=== PATIENT | male | born 1970 | race African-American/Black ===

== ENCOUNTER 2017-02-28 12:25 | Emergency (ER) | payer MEDICAID, OTHER ==
[~2017-02-28] VITALS: Ht 177.8 cm; Wt 70.0 kg
[~2017-02-28 12:25] MED LIST: DIPH50TA PO; DIPH50TA4 PO; DOXY100; LORA-474 PO; LORA-475 PO; LORA1TAB PO; LORA2TAB PO; QUET1TAB66 PO; REST30CA PO; RISP1TAB51 OR; RISP2TAB2 PO; SERO300T OR; TEMA30CA PO
[2017-02-28 12:42] VITALS: BP 116/84; PULSE 88; RESP 18; TEMP 97.7; O2SAT 98
[2017-02-28 12:47] VITALS: BP 116/84; PULSE 88; RESP 18; TEMP 97.7; O2SAT 98
--- NOTE | 2017-02-28 13:10 | PD ---
HPI Chief Complaint: Psychiatric Symptoms Time Seen by Provider: 12:55 Travel History International Travel<30 days: No Contact w/Intl Traveler<30days: No Traveled to known affect area: No History of Present Illness HPI This is a 46-year-old male who presents under Mccain act initiated by the Police Department. According to his paperwork, "[facility] manager Lacey Barahona advised that Gilberto was walking around the campground with no close. Upon arrival I made contact with [place] who had no pants on and could not advise where he currently was. Gilberto is known to suffer from schizophrenia and is constantly attempting to leave his home." History from the patient is somewhat limited at this time secondary to his extremely flat affect and minimal verbal communication. He does respond to commands well. He reports that he feels fine. He understands that he suffers from schizophrenia. He does not know what medications he is on. He has no acute complaints at this time. PFSH Past Medical History Medical History: Unable to Obtain Depression: Yes Schizophrenia: Yes Tetanus Vaccination: Unknown Past Surgical History Surgical History: No Previous Surgery Social History Alcohol Use: No Tobacco Use: No Substance Use: No Allergies-Medications (Allergen,Severity, Reaction): Coded Allergies: No Known Allergies (Unverified , 02/28/17) Reported Meds & Prescriptions Reported Meds & Active Scripts Active Reported Temazepam 30 Mg Cap 30 Mg PO HS Loratadine (Loratadine (Bulk)) 100 % Pow Diphenhydramine (Diphenhydramine HCl) 25 Mg Cap 25 Mg PO HS PRN Risperidone 1 Mg Tab 1 Mg PO HS Lorazepam 2 Mg Tab 2 Mg PO Q12HR PRN Seroquel (Quetiapine Fumarate) 300 Mg Tab 600 Mg PO HS Seroquel (Quetiapine Fumarate) 300 Mg Tab 300 Mg PO DAILY Review of Systems Except as stated in HPI: all other systems reviewed are Neg Physical Exam Narrative GENERAL: Well-developed well-nourished male in no acute distress sitting upright in hospital bed. He is responding to commands appropriately. He is otherwise minimally communicative. SKIN: Warm and dry. HEAD: Atraumatic. Normocephalic. EYES: Pupils equal and round. No scleral icterus. No injection or drainage. ENT: No nasal bleeding or discharge. Mucous membranes pink and moist. NECK: Trachea midline. No JVD. CARDIOVASCULAR: Regular rate and rhythm. No murmur appreciated. RESPIRATORY: No accessory muscle use. Clear to auscultation. Breath sounds equal bilaterally. GASTROINTESTINAL: Abdomen soft, non-tender, nondistended. Hepatic and splenic margins not palpable. MUSCULOSKELETAL: No obvious deformities. No clubbing. No cyanosis. No edema. NEUROLOGICAL: Awake and alert. No obvious cranial nerve deficits. Motor grossly within normal limits. Normal speech. PSYCHIATRIC: Flat affect. Insight and judgment appear impaired. Data Data Last Documented VS Vital Signs Date Time Temp Pulse Resp B/P (MAP) Pulse Ox O2 Delivery O2 Flow Rate FiO2 02/28/17 18:23 87 18 125/87 (100) 99 Room Air 02/28/17 12:47 97.7 Orders Orders Complete Blood Count With Diff (02/28/17 13:06) Comprehensive Metabolic Panel (02/28/17 13:06) Urinalysis - C+S If Indicated (02/28/17 13:06) Psych Screen (02/28/17 13:06) Drug Screen, Random Urine (02/28/17 13:06) Alcohol (Ethanol) (02/28/17 13:06) Ct Brain W/O Iv Contrast(Rout) (02/28/17 ) Diet Regular Basic (02/28/17 Dinner) Labs Laboratory Tests Test 02/28/17 13:20 02/28/17 14:54 White Blood Count 4.2 TH/MM3 Red Blood Count 5.06 MIL/MM3 Hemoglobin 11.2 GM/DL Hematocrit 35.9 % Mean Corpuscular Volume 71.0 FL Mean Corpuscular Hemoglobin 22.2 PG Mean Corpuscular Hemoglobin Concent 31.2 % Red Cell Distribution Width 14.6 % Platelet Count 232 TH/MM3 Mean Platelet Volume 8.6 FL Neutrophils (%) (Auto) 51.9 % Lymphocytes (%) (Auto) 31.5 % Monocytes (%) (Auto) 10.2 % Eosinophils (%) (Auto) 5.7 % Basophils (%) (Auto) 0.7 % Neutrophils # (Auto) 2.2 TH/MM3 Lymphocytes # (Auto) 1.3 TH/MM3 Monocytes # (Auto) 0.4 TH/MM3 Eosinophils # (Auto) 0.2 TH/MM3 Basophils # (Auto) 0.0 TH/MM3 CBC Comment DIFF FINAL Differential Comment Blood Urea Nitrogen 6 MG/DL Creatinine 0.84 MG/DL Random Glucose 83 MG/DL Total Protein 7.3 GM/DL Albumin 3.6 GM/DL Calcium Level 8.2 MG/DL Alkaline Phosphatase 89 U/L Aspartate Amino Transf (AST/SGOT) 24 U/L Alanine Aminotransferase (ALT/SGPT) 38 U/L Total Bilirubin 0.1 MG/DL Sodium Level 140 MEQ/L Potassium Level 4.0 MEQ/L Chloride Level 109 MEQ/L Carbon Dioxide Level 26.6 MEQ/L Anion Gap 4 MEQ/L Estimat Glomerular Filtration Rate 120 ML/MIN Ethyl Alcohol Level LESS THAN 3 MG/DL Urine Color YELLOW Urine Turbidity CLEAR Urine pH 8.0 Urine Specific [place] 1.019 Urine Protein TRACE mg/dL Urine Glucose (UA) NEG mg/dL Urine Ketones NEG mg/dL Urine Occult Blood NEG Urine Nitrite NEG Urine Bilirubin NEG Urine Urobilinogen LESS THAN 2.0 MG/DL Urine Leukocyte Esterase NEG Urine RBC LESS THAN 1 /hpf Urine WBC LESS THAN 1 /hpf Microscopic Urinalysis Comment CULT NOT INDICATED Urine Opiates Screen NEG Urine Barbiturates Screen NEG Urine Amphetamines Screen NEG Urine Benzodiazepines Screen POS Urine Cocaine Screen NEG Urine Cannabinoids Screen NEG MDM Medical Decision Making Medical Screen Exam Complete: Yes Emergency Medical Condition: Yes Medical Record Reviewed: Yes Interpretation(s) CBC reveals hemoglobin 11.[address] brain reveals no acute abnormalities CMP unremarkable Alcohol level negative Differential Diagnosis Schizophrenia, acute psychosis, medication noncompliance, substance induced mood disorder, encephalitis, meningitis Narrative Course 46-year-old male with history of schizophrenia presents under Mccain act for psychiatric evaluation. Mental health screening discussed with the patient. Psychiatric screen ordered. The patient is medically cleared for psychiatric disposition. 2020: I had been informed that this patient's Mccain act has been lifted by psychiatrist Dr. Camarillo as he did not deem that he required psychiatric hospitalization. 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 As there does not appear to be any additional medical issues that require treatment today, the patient will therefore be discharged. Diagnosis Primary Impression: Schizophrenia Qualified Codes: F20.9 - Schizophrenia, unspecified Referrals: Psychiatrist Additional Instructions: Please follow-up with your psychiatrist and return for any emergent medical conditions. Med/Other Pt SpecificInfo: No Change to Meds Disposition: 01 DISCHARGE HOME Condition: Stable Jose Bledsoe Feb 28, 2017 13:10
[2017-02-28 13:40] LABS: AUTOMATED NEUTROPHIL # 2.2 TH/MM3 (1.8-7.7); BASOPHIL % 0.7 % (0.0-2.0); EOSINOPHIL # 0.2 TH/MM3 (0-0.4); EOSINOPHIL % 5.7 % (0.0-4.0); HEMATOCRIT 35.9 % (39.0-51.0); HEMO FLAGS DIFF FINAL; LYMPH % 31.5 % (9.0-44.0); LYMPHOCYTE # 1.3 TH/MM3 (1.0-4.8); MEAN CORPUSCULAR HEMOGLOBIN 22.2 PG (27.0-34.0); MEAN CORPUSCULAR HGB CONC 31.2 % (32.0-36.0); MONO % 10.2 % (0.0-8.0); NEUT % 51.9 % (16.0-70.0); PLATELET COUNT 232 TH/MM3 (150-450); RED BLOOD COUNT 5.06 MIL/MM3 (4.50-5.90); RED CELL DISTRIBUTION WIDTH 14.6 % (11.6-17.2); WHITE BLOOD COUNT 4.2 TH/MM3 (4.0-11.0)
[2017-02-28 14:09] LABS: ALT (GPT) 38 U/L (12-78); ANION GAP 4 MEQ/L (5-15); AST (GOT) 24 U/L (15-37); BICARBONATE 26.6 MEQ/L (21.0-32.0); BLOOD UREA NITROGEN 6 MG/DL (7-18); CHLORIDE 109 MEQ/L (98-107); GLOMERULAR FILTRATION RATE 120 ML/MIN (>89); SODIUM (NA) 140 MEQ/L (136-145)
[2017-02-28 14:11] LABS: ALKALINE PHOSPHATASE 89 U/L (45-117); TOTAL BILIRUBIN ADULT 0.1 MG/DL (0.2-1.0)
[2017-02-28 14:12] LABS: ALCOHOL LESS THAN 3 MG/DL (0-5)
--- NOTE | 2017-02-28 14:49 | RADRPT ---
EXAM DATE/TIME: 02/28/2017 14:18 [facility] COMPARISON: No previous studies available for comparison. INDICATIONS : Cephalgia RADIATION DOSE: 34.71 CTDIvol (mGy) MEDICAL HISTORY : schizophrenia SURGICAL HISTORY : None. ENCOUNTER: Initial ACUITY: 1 day PAIN SCALE: 2/10 LOCATION: cranial TECHNIQUE: Multiple contiguous axial images were obtained of the head. Using automated exposure control and adj ustment of the mA and/or kV according to patient size, radiation dose was kept as low as reasonably a chievable to obtain optimal diagnostic quality images. DICOM format image data is available electro nically for review and comparison. FINDINGS: CEREBRUM: The ventricles are normal for age. No evidence of midline shift, mass lesion, hemorrhage or acute in farction. No extra-axial fluid collections are seen. POSTERIOR FOSSA: The cerebellum and brainstem are intact. The 4th ventricle is midline. The cerebellopontine angle i s unremarkable. EXTRACRANIAL: There is mucoperiosteal thickening of the visualized ethmoid air cells. SKULL: The calvaria is intact. No evidence of skull fracture. CONCLUSION: No intracranial abnormality demonstrated. Sinusitis. Tone Pimentel MD on February 28, 2017 at 14:47 Board Certified Radiologist. This report was verified electronically.
[2017-02-28 15:30] LABS: BLOOD, URINE NEG (NEG); COMMENT (UR) CULT NOT INDICATED; CULTURE IF INDICATED CULT NOT INDICATED; GLUCOSE,URINE NEG (NEG); KETONE, URINE NEG (NEG); NITRITE,URINE NEG (NEG); URINE COLOR YELLOW (YELLW/STRAW)
[2017-02-28 18:23] VITALS: BP 125/87; PULSE 87; RESP 18; O2SAT 99
[2017-02-28] MEDS ORDERED: TEMA30CA PO (18:40)
[2017-02-28] MEDS ORDERED: RISP1TAB2 PO (18:40)
[2017-02-28] MEDS ORDERED: LORA1POW7 (18:40)
[2017-02-28] MEDS ORDERED: SERO300T PO ×2 (18:40)
[2017-02-28] MEDS ORDERED: DIPH25CA PO (18:40)
[2017-02-28] MEDS ORDERED: LORA2TAB7 PO (18:40)
--- NOTE | 2017-02-28 19:38 | PD ---
History of Present Illness Chief Complaint: Psychiatric Symptoms Time Seen by Provider: 19:15 Travel History International Travel<30 Days: No Contact w/Intl Traveler<30days: No Known affected area: No Legal Status Legal Status: Mccain Act Mccain Act Signed By: Karuna Steele Mccain Act Comment: OFFICER KATHARINE CLAROS #[id number] CASE #[id number] History of Present Illness: 46-year-old male brought in under a Mccain act for apparently walking around a campground with no pants. Law enforcement attempted to interview the patient but he could not advise where he resided. Somehow he was known to suffer from schizophrenia and had frequently left home. Patient has a ground products director, Pippa. Pippa was contacted by our staff and indicates the patient does intermittently leave home inappropriately. However, she states he is not a danger to himself or others and she is willing to care for him. This physician interviewed the patient and, although his speech is garbled, he wants to go home and he is not trying to hurt himself or anyone else. PFSH Past Medical History Medical History: Unable to Obtain Schizophrenia: Yes Tetanus Vaccination: Unknown Past Surgical History Surgical History: No Previous Surgery Psychiatric History Psychiatric History Hx Psychiatric Treatment: SCHIZOPHRENIA History of Inpatient Treatment: Yes Guns or firearms in home: No Social History Hx Alcohol Use: No Hx Tobacco Use: No Hx Substance Use: No Hx of Substance Use Treatment: No Allergies-Medications (Allergen,Severity, Reaction): Coded Allergies: No Known Allergies (Unverified , 02/28/17) Reported Meds & Prescriptions Reported Meds & Active Scripts Active Reported Temazepam 30 Mg Cap 30 Mg PO HS Loratadine (Loratadine (Bulk)) 100 % Pow Diphenhydramine (Diphenhydramine HCl) 25 Mg Cap 25 Mg PO HS PRN Risperidone 1 Mg Tab 1 Mg PO HS Lorazepam 2 Mg Tab 2 Mg PO Q12HR PRN Seroquel (Quetiapine Fumarate) 300 Mg Tab 600 Mg PO HS Seroquel (Quetiapine Fumarate) 300 Mg Tab 300 Mg PO DAILY Review of Systems Except as stated in HPI: all other systems reviewed are Neg Exam Alert: Yes [place]: Person Mood: Calm Affect: Restricted Speech: Illogical, Slurred Eye Contact: Indirect Insight/Judgement Impaired but baseline. MDM Medical Decision Making Medical Record Reviewed: Yes Assessment/Plan Patient interviewed in bed side. Case discussed with nurse. Medical record reviewed. This physician does not see the point of continuing the patient under a Mccain act or admitting him for involuntary psychiatric hospitalization. Patient's behavior appears to be both chronic, intermittent and unresolvable through medications. Patient does not present as an immediate danger to himself or others. He has a ground products director who is willing to take him home and care for him. Patient is cooperative and wants to go home. He is not suicidal, homicidal, psychotic or in need of psychiatric hospitalization or medication changes. Orders Orders Complete Blood Count With Diff (02/28/17 13:06) Comprehensive Metabolic Panel (02/28/17 13:06) Urinalysis - C+S If Indicated (02/28/17 13:06) Psych Screen (02/28/17 13:06) Drug Screen, Random Urine (02/28/17 13:06) Alcohol (Ethanol) (02/28/17 13:06) Ct Brain W/O Iv Contrast(Rout) (02/28/17 ) Diet Regular Basic (02/28/17 Dinner) Results Vital Signs Date Time Temp Pulse Resp B/P (MAP) Pulse Ox O2 Delivery O2 Flow Rate FiO2 02/28/17 18:23 87 18 125/87 (100) 99 Room Air 02/28/17 16:37 02/28/17 12:47 88 18 02/28/17 12:47 97.7 88 18 116/84 (95) 98 Room Air 02/28/17 12:42 97.7 88 18 116/84 (95) 98 Laboratory Tests Test 02/28/17 13:20 02/28/17 14:54 White Blood Count 4.2 Red Blood Count 5.06 Hemoglobin 11.2 Hematocrit 35.9 Mean Corpuscular Volume 71.0 Mean Corpuscular Hemoglobin 22.2 Mean Corpuscular Hemoglobin Concent 31.2 Red Cell Distribution Width 14.6 Platelet Count 232 Mean Platelet Volume 8.6 Neutrophils (%) (Auto) 51.9 Lymphocytes (%) (Auto) 31.5 Monocytes (%) (Auto) 10.2 Eosinophils (%) (Auto) 5.7 Basophils (%) (Auto) 0.7 Neutrophils # (Auto) 2.2 Lymphocytes # (Auto) 1.3 Monocytes # (Auto) 0.4 Eosinophils # (Auto) 0.2 Basophils # (Auto) 0.0 CBC Comment DIFF FINAL Differential Comment Blood Urea Nitrogen 6 Creatinine 0.84 Random Glucose 83 Total Protein 7.3 Albumin 3.6 Calcium Level 8.2 Alkaline Phosphatase 89 Aspartate Amino Transf (AST/SGOT) 24 Alanine Aminotransferase (ALT/SGPT) 38 Total Bilirubin 0.1 Sodium Level 140 Potassium Level 4.0 Chloride Level 109 Carbon Dioxide Level 26.6 Anion Gap 4 Estimat Glomerular Filtration Rate 120 Ethyl Alcohol Level LESS THAN 3 Urine Color YELLOW Urine Turbidity CLEAR Urine pH 8.0 Urine Specific [place] 1.019 Urine Protein TRACE Urine Glucose (UA) NEG Urine Ketones NEG Urine Occult Blood NEG Urine Nitrite NEG Urine Bilirubin NEG Urine Urobilinogen LESS THAN 2.0 Urine Leukocyte Esterase NEG Urine RBC LESS THAN 1 Urine WBC LESS THAN 1 Microscopic Urinalysis Comment CULT NOT INDICATED Urine Opiates Screen NEG Urine Barbiturates Screen NEG Urine Amphetamines Screen NEG Urine Benzodiazepines Screen POS Urine Cocaine Screen NEG Urine Cannabinoids Screen NEG Diagnosis Primary Impression: Disorganized schizophrenia Departure Forms: Tests/Procedures Patient Instructions: General Instructions Topher Camarillo MD Feb 28, 2017 19:38
== END 2017-02-28 21:05 | disposition home or self-care (01) ==
LOC: NEPD 12:25 → NEPJ 21:05
DX: F20.1 Disorganized schizophrenia (principal)
CPT/HCPCS: 70450; 80053; 80307; 81001; 85025; 99284